=== PATIENT | female | born 1925 | race Caucasian/White ===

== ENCOUNTER 2016-10-05 18:18 | Observation (INO) | payer OTHER, MEDICAID ==
[~2016-10-05] VITALS: Ht 157.5 cm; Wt 51.9 kg
[2016-10-05 19:41] LABS: PLATELET COUNT 325 x10^3mcL (130-400)
[2016-10-05 19:45] LABS: CALCIUM 8.4 mg/dL (8.5-10.1); CARBON DIOXIDE 29.5 mmol/L (21-32); CHLORIDE SERUM 104 mmol/L (98-107); CREATININE SERUM 1.6 mg/dL (0.6-1.0); GLUCOSE SERUM 120 mg/dL (74-106); POTASSIUM SERUM 5.1 mmol/L (3.5-5.1); SODIUM SERUM 139 mmol/L (136-145)
[2016-10-05 19:50] LABS: ALKALINE PHOSPHATASE 97 U/L (46-116); ALT/SGPT 15 U/L (14-59); AST/SGOT 18 U/L (15-37); BILIRUBIN TOTAL 0.29 mg/dL (0.20-1.00); TOTAL PROTEIN, SERUM 6.6 g/dL (6.4-8.2)
[2016-10-05 19:51] LABS: ALBUMIN 2.8 g/dL (3.4-5.0)
[2016-10-05 19:53] LABS: RED CELL DISTRIBUTION WIDTH 22.4 % (11.5-14.5)
[2016-10-05 20:03] LABS: MONOCYTE 19 % (0-7); SEGMENTED NEUTROPHILS 57 % (37-75)
[2016-10-05 20:06] LABS: BAND NEUTROPHIL 0 % (0-10); BASOPHIL 0 % (0-2); rbc morphology (normal/abnorm) ABNORMAL (NORMAL)
[2016-10-05 20:07] LABS: PLATELET MORPHOLOGY PLATELETS NORMAL; ovalocyte/elliptocyte 1+
[2016-10-05 21:28] LABS: PHOSPHOROUS 3.3 mg/dL (2.5-4.9); RED BLOOD CELLS 2.49 M/mm3 (4.10-5.10)
[2016-10-05 21:30] LABS: T3 TOTAL 0.92 ng/mL
[2016-10-05 21:31] LABS: FREE T4 1.03 ng/dL (0.76-1.46)
[2016-10-05 21:33] LABS: IRON 35 ug/dL (50-170)
[2016-10-05 21:34] LABS: TOTAL IRON BINDING CAPACITY 212 ug/dL (250-450)
[2016-10-05 21:56] LABS: FREE THYROXINE INDEX 2.3 ug/dL (1.4-4.5); T4(THYROXINE) 7.3 ug/dL (4.7-13.3)
[2016-10-05 21:58] LABS: CHOLESTEROL/HDL RATIO 2.5; MAGNESIUM 1.4 mg/dL (1.8-2.4)
[2016-10-05 22:17] VITALS: BP 163/57
[2016-10-05 23:35] LABS: UA SPECIFIC GRAVITY 1.015 (1.005-1.035); microscopic required? YES; urine erythrocyte NEGATIVE (NEGATIVE)
[2016-10-05 23:46] LABS: AMPHETAMINE QUAL UR NONE DETECTED (NEG <=1000)
[2016-10-06 06:30] VITALS: BP 145/60
[2016-10-06 07:20] VITALS: BP 146/65
[2016-10-06 09:04] VITALS: BP 140/62
[2016-10-06 12:12] LABS: PLATELET COUNT 264 x10^3mcL (130-400)
[2016-10-06 12:13] LABS: RED CELL DISTRIBUTION WIDTH 19.3 % (11.5-14.5)
[2016-10-06 12:48] LABS: SEGMENTED NEUTROPHILS 64 % (37-75)
[2016-10-06 12:49] LABS: ATYPICAL LYMPH 2 %; BAND NEUTROPHIL 0 % (0-10); BASOPHIL 0 % (0-2); MONOCYTE 10 % (0-7); PLATELET MORPHOLOGY N; rbc morphology (normal/abnorm) ABNORMAL (NORMAL)
[2016-10-06 13:26] VITALS: BP 149/59
[2016-10-06 16:17] VITALS: BP 149/59
== END 2016-10-06 17:30 | disposition home or self-care (01) | DRG 811 ==
LOC: ED 18:18 → DU 20:30
PROVIDERS: Emergency Medicine; ADMIT Family Medicine
PROC: 30233N1 Transfusion of Nonautologous Red Blood Cells into Peripheral Vein, Percutaneous Approach (ICD-10-PCS; principal; 2016-10-05)
DX: D64.81 Anemia due to antineoplastic chemotherapy (principal); E43 Unspecified severe protein-calorie malnutrition; I50.43 Acute on chronic combined systolic (congestive) and diastolic (congestive) heart failure; N17.0 Acute kidney failure with tubular necrosis; N39.0 Urinary tract infection, site not specified; C53.9 Malignant neoplasm of cervix uteri, unspecified; T45.1X5A Adverse effect of antineoplastic and immunosuppressive drugs, initial encounter; E83.42 Hypomagnesemia; Z68.20 Body mass index [BMI] 20.0-20.9, adult; Z92.3 Personal history of irradiation; Y92.009 Unspecified place in unspecified non-institutional (private) residence as the place of occurrence of the external cause
CPT/HCPCS: 80307; 83880; 84439; G0378; J0696; J1940; J3475; J7030; J7050; P9016; Q0092

== ENCOUNTER 2016-10-19 13:17 | Inpatient (IN) | payer OTHER, MEDICAID ==
[~2016-10-19] VITALS: Ht 157.5 cm; Wt 56.4 kg
--- NOTE | 2016-10-19 13:41 | NUR ---
CODE BRAIN CALLED.
--- NOTE | 2016-10-19 13:43 | NUR ---
TO CT VIA W/C.
--- NOTE | 2016-10-19 13:46 | NUR ---
RECEVED AWAKE ALERT ORIENTED, ANSWERS QUESTIONS PROPERLY, PER DAUGHTER, HAD HEADACHE YESTERDAY, TODAY AT 1145 DAUGHTER NOTICED THAT HER MOTHER BECAME ALTERED AND HAVING SLURRED SPEECH,AND WAS C/O RT HAND NUMBNESS, NOW IMPROVED,SEEN BY DR DE LEON
--- NOTE | 2016-10-19 14:16 | NUR ---
IV ESTABLISHED, BLOOD DRAWN,BLOOD CULTURE DONE, COMPRESSOR STATION ENGINEER CHIEF IN SR WITH OCCASIONAL PACS
[2016-10-19 14:28] LABS: BASOPHIL % 0.5 % (0-2); PLATELET COUNT 324 x10^3mcL (130-400)
[2016-10-19 14:59] LABS: ALBUMIN 3.1 g/dL (3.4-5.0); ALKALINE PHOSPHATASE 106 U/L (46-116); ALT/SGPT 17 U/L (14-59); AST/SGOT 20 U/L (15-37); BILIRUBIN TOTAL 0.33 mg/dL (0.20-1.00); CALCIUM 8.8 mg/dL (8.5-10.1); CARBON DIOXIDE 26.9 mmol/L (21-32); CHLORIDE SERUM 104 mmol/L (98-107); CHOLESTEROL 183 mg/dL (<200); CREATININE SERUM 1.5 mg/dL (0.6-1.0); GLUCOSE SERUM 120 mg/dL (74-106); HDL CHOLESTEROL 61 mg/dL (40-60); POTASSIUM SERUM 4.4 mmol/L (3.5-5.1); SODIUM SERUM 140 mmol/L (136-145); TOTAL PROTEIN, SERUM 6.9 g/dL (6.4-8.2)
[2016-10-19 16:20] VITALS: BP 171/71
--- NOTE | 2016-10-19 16:24 | NUR ---
RECEIVED PT FROM ED VIA GUZMAN. ORIENTED PT TO ROOM AND SURROUNDINGS. IV NOTED TO RFA PATENT AND INTACT. TELE 3 PLACED ON PT READING SR WITH PACS. INSTRUCTED PT ON THE USE OF CALL LIGHT FOR ASSISTANCE. ENDORSED PT TO PRIMARY NURSE OLIVIA
[2016-10-19 17:33] VITALS: BP 164/62
[2016-10-19 17:40] LABS: PHOSPHOROUS 3.6 mg/dL (2.5-4.9)
[2016-10-19 17:48] LABS: FREE T4 1.06 ng/dL (0.76-1.46); FREE THYROXINE INDEX 2.5 ug/dL (1.4-4.5); T3 TOTAL 1.02 ng/mL; T4(THYROXINE) 8.3 ug/dL (4.7-13.3)
[2016-10-19 18:13] LABS: CHOLESTEROL/HDL RATIO 3.1; MAGNESIUM 1.3 mg/dL (1.8-2.4)
[2016-10-19 18:30] VITALS: BP 161/65
--- NOTE | 2016-10-19 19:10 | NUR ---
PATIENT RECEIVED AWAKE, ALERT, AND ORIENTED X 4. DAUGHTER AT BEDSIDE. NO DISTRESS NOTED. PATIENT DENIES PAIN/DISCOMFORT. PATIENT DENIES TINGLING/NUMBNESS TO ARMS. IV SITE TO RIGHT FOREARM, PATENT AND INTACT. IV FLUID INFUSING PER DOCTOR'S ORDER. BED IN LOWEST POSITION. CALL LIGHT WITHIN REACH. WILL CONTINUE TO MONITOR.
[2016-10-19 20:35] LABS: UA SPECIFIC GRAVITY 1.015 (1.005-1.035); microscopic required? YES; urine erythrocyte NEGATIVE (NEGATIVE)
[2016-10-19 20:42] LABS: AMPHETAMINE QUAL UR NONE DETECTED (NEG <=1000)
--- NOTE | 2016-10-19 20:50 | NUR ---
HEPARIN DRIP INITIATED. HEPARIN LOADING DOSE OF 3400 UNITS GIVEN. HEPARIN DRIP STARTED AT 700 UNITS/HR, VERIFIED W/ PRIMARY NURSE JOSIE. PTT ORDERED AT 0250H.
[2016-10-19 21:28] VITALS: BP 126/58
[2016-10-20 03:09] LABS: BASOPHIL % 0.6 % (0-2); PLATELET COUNT 250 x10^3mcL (130-400)
[2016-10-20 03:10] LABS: RED CELL DISTRIBUTION WIDTH 17.9 % (11.5-14.5)
[2016-10-20 03:27] LABS: CALCIUM 8.4 mg/dL (8.5-10.1); CARBON DIOXIDE 26.9 mmol/L (21-32); CHLORIDE SERUM 106 mmol/L (98-107); CREATININE SERUM 1.3 mg/dL (0.6-1.0); GLUCOSE SERUM 100 mg/dL (74-106); MAGNESIUM 2.8 mg/dL (1.8-2.4); POTASSIUM SERUM 4.2 mmol/L (3.5-5.1); SODIUM SERUM 139 mmol/L (136-145)
--- NOTE | 2016-10-20 03:51 | NUR ---
PTT=61.9. FIRST THERAPEUTIC. PTT REORDERED FOR 0700.
--- NOTE | 2016-10-20 05:09 | NUR ---
PATIENT RESTED THROUGHOUT THE NIGHT. NO DISTRESS NOTED. NO C/O PAIN/DISCOMFORT. SAFETY AND COMFORT MEASURES MAINTAINED. BED IN LOWEST POSITION. CALL LIGHT WITHIN REACH. WILL CONTINUE TO MONITOR AND GIVE REPORT TO THE NEXT SHIFT NURSE.
[2016-10-20 06:00] VITALS: BP 126/53
--- NOTE | 2016-10-20 07:56 | NUR ---
A/O X4. CLEAR SPEECH. FOLLOW COMMANDS. ON TEL 3 SR WITH PAC'S HR 74. RADIAL AND PEDAL PULSES PALPABLE. NO EDEMA OR SWELLING NOTED. <3 SECS CAP REFILL. SCDS IN PLACED. ON RA SAT 96%. BREATHING EVEN AND UNLABORED. CLEAR LUNG SOUNDS. VOIDING ADEQUATELY. HAS MILD GENERALIZED WEAKNESS. NEEDS ASSIST WITH ADLS. NO SKIN TEAR OR OPEN WOUNDS. NO BRUISES NOTED. DENIES PAIN. IV SITE INTACT ON RFA. NS INFUSING WELL AT 100 ML/HR. HEP DRIP INFUSING AT 700 UNITS/HR. CALL LIGHT WITHIN REACH. WILL CONTINUE TO MONITOR.
--- NOTE | 2016-10-20 08:25 | NUR ---
TOOK MEDS WITHOUT DIFFICULTY.
--- NOTE | 2016-10-20 09:02 | NUR ---
SPOKE TO DR BARROS REGARDING BLOOD CX RESULT OF GRAM POSITIVE AND COCCI AND CLUSTERS.
--- NOTE | 2016-10-20 09:23 | NUR ---
PTT STILL PENDING AT THIS TIME.
--- NOTE | 2016-10-20 09:25 | NUR ---
WATCHING TV AT THIS TIME. NO DISTRESS NOTED. WILL CONTINUE TO MONITOR.
--- NOTE | 2016-10-20 09:50 | NUR ---
PTT IS AT 52.8. ACCORDING TO HEPARIN ORDER SHEET IT IS WITHIN THERAPEUTIC RANGE AND NO CHANGE.
[2016-10-20 09:58] VITALS: BP 130/57
--- NOTE | 2016-10-20 10:05 | NUR ---
SITTING AT THE SIDE OF BED. NO DISTRESS NOTED.
--- NOTE | 2016-10-20 11:42 | NUR ---
PHYSICAL THERAPIST AT BEDSIDE.
--- NOTE | 2016-10-20 12:17 | NUR ---
WATCHING TV. NO DISTRESS NOTED.
--- NOTE | 2016-10-20 13:15 | NUR ---
RESTING COMFORTABLY. WILL CONTINUE TO MONITOR.
--- NOTE | 2016-10-20 13:49 | NUR ---
MEDICAL STUDENT AT BEDSIDE.
[2016-10-20 14:14] VITALS: BP 128/52
--- NOTE | 2016-10-20 14:31 | NUR ---
REINFORCE IV DRESSING WITH TAPE.
--- NOTE | 2016-10-20 15:44 | NUR ---
P.T. NOTES Pt CLEARED PER RN FOR PT EVAL. PATIENT LIVES AT HOME W/FAMILY WHO ASSIST HER WITH ADLs NEEDED. SHE AMBU W/FWW PRN AT HOME BUT ADMITS TO INCONSISTENT USE OF ASSISTIVE DEVICE AND INCREASED DIFFICULTY WITH WALKING AND BALANCE. Pt WAS ADMITTED TO HOSPITAL S/P TIA AND PAROXYSMAL A-FIB. IMAGING:SMALL LACUNAR INFARCT OF L THALAMUS. S: Pt PRESENTS AWAKE, ALERT AND AGREEABLE FOR PT EVAL. DENIES PAIN AT THIS TIME, BUT C/O SOME INTERMITTENT DIZZINESS AT TIMES. Pt IS PLEASANT AND TALKATIVE. ORIENTED X4. O: PLEASE SEE EVAL FOR DETAILS. VS ASSESSMENT: SP02 98% ON RA, HR 82BPM, BP 138/54. Pt MOSTLY REQUIRES MIN A FOR BED MOB, TRANSFERS AND GT WITH FWW FOR 2 X 12 FT. Pt EDU ON SAFETY, FWW USE, FALL PREVENTION INCLUDING HOME SAFETY. Pt SAFELY ASSISTED BTB POST PT EVAL WITH ALL LINES INTACT, CALL LIGHT AND TRAY IN REACH, HOB ELEVATED. COOPERATIVE AND APPRECIATIVE OF CARE. A: PT TOLERATED PT WELL. FALL RISK D/T DECLINE IN FUNCTION, MILD UNSTEADY GAIT WITH FWW, DECREASED SAFETY AWARENESS. MILD IMPULSIVE AT TIMES. FRAGILE ELDERLY. DEMO'S DECREASED GABRIEL, ANTERIOR FLEXED POSTURE, FLAT FOOT CONTACT, DECREASED FOOT CLEARANCE. WILL BENEFIT FROM PT SERVICES DURING ACUTE STAY AND POST ACUTE STAY FOR BALANCE TRAINING/FALL PREVENTION. P: POC REVIEWED W/PROFESSOR OF APOLOGETICS. PLEASE SEE PATIENT ONCE DAILY, 6X/WK,1 WEEK. EVAL 38' [id number]; [id number] TUG 13 SEC Pt INSTRUCTED ON SUP<>SIT VIA LOG ROLL WELL PROPER SIT<>STAND W/USE OF FWW. ASSISTED W/USE OF COMMODE W/MIN A AND INSTRUCTED W/SAFE TRANSFER W/USE OF GRAB BAR. DEMO GOOD LEARNING. 1 TA 10' [phone]
--- NOTE | 2016-10-20 16:56 | NUR ---
COMPLAINS OF ACHING LEFT BACK LEG 6/10. NORCO GIVEN. WILL CONTINUE TO MONITOR.
[2016-10-20 17:04] VITALS: BP 133/63
--- NOTE | 2016-10-20 19:10 | NUR ---
RECEIVED PATIENT RESTING IN BED. PATIENT IS ALERT, AWAKE, AND ORIENTED X4. TELE #3 SINUS RHYTHM. LUNG SOUNDS CLEAR. NO SHORTNESS OF BREATH NOTED. BOWEL SOUNDS ACTIVE. GENERALIZED WEAKNESS NOTED. AMBULATES WITH ASSIST. BRUSING NOTED UNDER LEFT EYE. IV FLUID INFUSING AT 100 ML/HR TO RIGHT FOREARM. HEPARIN CONTINUES TO INFUSE AT 700 UNITS/HR. INTACT AND PATENT. SAFETY AND COMFORT MEAUSURES IN PLACE. BED IN LOWEST POSITION. CALL LIGHT WITHIN REACH. WILL CONTINUE TO MONITOR.
[2016-10-20 22:15] VITALS: BP 132/36
[2016-10-21 01:01] VITALS: BP 118/66
--- NOTE | 2016-10-21 05:07 | NUR ---
PATIENT RESTING IN BED. NO SIGNIFICANT CHANGES DURING SHIFT. NO DISTRESS NOTED. HEPARIN CONTINUES TO INFUSE AT 700 UNITS/HR. CALL LIGHT WITHIN REACH. WILL CONTINUE TO MONITOR.
[2016-10-21 05:55] VITALS: BP 124/49
[2016-10-21 06:54] LABS: CARBON DIOXIDE 23.3 mmol/L (21-32); CHLORIDE SERUM 109 mmol/L (98-107); CREATININE SERUM 1.4 mg/dL (0.6-1.0); GLUCOSE SERUM 90 mg/dL (74-106); POTASSIUM SERUM 4.5 mmol/L (3.5-5.1); SODIUM SERUM 140 mmol/L (136-145)
[2016-10-21 07:05] LABS: BASOPHIL % 0.7 % (0-2); PLATELET COUNT 225 x10^3mcL (130-400)
--- NOTE | 2016-10-21 07:10 | NUR ---
PT SEEN AWAKE, ALERT/ ORIENTED X3. PT COMPLAIN OF MODERATE PAIN ON L FOOT AND KNEE PAIN 2/2 THIS FALL. WILL PROVIDE PAIN MANAGEMENT PER ORDER. PT'S R GAMBELL. PT BREATHING ON RA EVEN, UNLABORED. PT ON HEPARIN DRIP, INFUSING AT 700 UNITS/HR AT THIS TIME. WAITING FOR THIS MORNING PTT RESULT. NEED TO ASSIST TO WALK TO BATHROOM.
[2016-10-21 07:23] LABS: RED CELL DISTRIBUTION WIDTH 19.5 % (11.5-14.5)
[2016-10-21 07:45] VITALS: BP 125/61
--- NOTE | 2016-10-21 08:20 | NUR ---
GOT LAB CALL PT'S PTT 52.4, WITHIN THERAPEUTIC, HEPARIN DRIP REMAINING 700 UNITS/ HR. WILL CONTINUE TO MONITOR.
[2016-10-21 13:35] VITALS: BP 106/50
[2016-10-21 14:00] VITALS: BP 121/49
--- NOTE | 2016-10-21 14:04 | NUR ---
PT IS GETTING READY FOR CT ABD+PELVIS WITH ORAL CONTRAST.
--- NOTE | 2016-10-21 15:44 | NUR ---
PT NOTES TIME [id number] S: CLEARED BY RN FOR P.T. TX. PATIENT IS AWAKE & ALERT IN A SEMI GARCIA POSITION IN BED. AGREEABLE TO P.T. TX. C/O PAIN ON L BALL OF FOOT 7/10 W/ MOVEMENT & DIZZINESS. DR. BARROS AWARE OF PATIENT'S C/O PAIN ON L FOOT. O: VITALS AT REST BP 116/50, HR 89 BPM, SPO2 ON RA 96%. BED MOBILITY: SUPINE>SIT CGA. TRANSFER: SIT<>STAND W/ FWW MIN/CGA. STAND PIVOT TRANSFER W/ MIN/CGA. VC GIVEN W/ PROPER HAND/FEET PLACEMENT FOR SIT<>STAND TRANSFERS & STAND PIVOT TRANSFERS. GAIT: 10FT W/ FWW MIN ASSIST. PATIENT DEMO'S ANTALGIC GAIT ON L LE. PATIENT UNABLE TO ASSUME L FOOT FLAT CONTACT DURING GAIT & TENDS TO ONLY HAVE L HEEL CONTACT. PATIENT PROTECTIVE OF L FOOT. GAIT DISTANCE LIMITED D/T DIZZINESS. VITALS IN SITTING BP 145/50. VC GIVEN W/ PROPER GAIT SEQUENCE. SHORTENED STEP/STRIDE LENGTH. DECREASE GAIT VELOCITY. EDUCATED ON SAFETY FOR FALL PREVENTION W/ GOOD UNDERSTANDING. COOPERATIVE & APPRECIATIVE OF CARE. INSTRUCTED IN THER EX FOR BILAT LE. PATIENT IS SAFELY & COMFORTABLY SITTING UP AT EOB W/ CALL BUTTON & TABLE IN REACH. RN NOTIFIED. P: DISCUSSED W/ PRIMARY PHYSICAL THERAPIST [id number]',[id number]'
--- NOTE | 2016-10-21 19:00 | NUR ---
PT'S DAUGHTER AT BED SIDE. PT HAD BM, STOOL SPECIMEN SENT PER ORDER. PT BREATHING ON RA, EVEN, UNLABORED, IV SITE PATENT, INTACT. HEPARINE DRIP INFUSING AT 700 UNITS/ HR. PT NEED NPO AFTER MID NIGHT FOR TOMORROW EGD.
--- NOTE | 2016-10-21 19:01 | NUR ---
RECEIVED PATIENT RESTING IN BED WITH FAMILY AT BEDSIDE. PATIENT IS ALERT, AWAKE, AND ORIENTED X4. TELE #3 SINUS RHYTHM. PATIENT DENIES PAIN OR DISCOMFORT AT THIS TIME. LUNG SOUNDS CLEAR. NO SHORTNESS OF BREATH NOTED. TRACE EDEMA NOTED TO BLE. MILD SWELLING NOTED TO LEFT FOOT AND KNEE. PATIENT COMPLAINS OF PAIN WHEN PUTTING WEIGHT ON LLE. BRUISING NOTED TO LEFT SIDE OF FACE. IV FLUID INFUSING TO RIGHT FOREARM AT 60 ML/HR. HEPARIN DRIP INFUSING AT 700 UNITS/HR. INTACT AND PATENT. SAFETY AND COMFORT MEASURES IN PLACE. BED IN LOWEST POSITION. CALL LIGHT WITHIN REACH. WILL CONTINUE TO MONITOR.
--- NOTE | 2016-10-21 20:00 | NUR ---
HEPARIN DRIP DC'D ORDERED.
[2016-10-21 21:19] VITALS: BP 140/54
--- NOTE | 2016-10-22 05:04 | NUR ---
PATIENT SLEPT WELL DURING THE NIGHT. NO DISTRESS NOTED. IV FLUID INFUSING WELL. CALL LIGHT WITHIN REACH. WILL CONTINUE TO MONITOR.
[2016-10-22 05:19] VITALS: BP 144/54
[2016-10-22 06:10] LABS: BASOPHIL % 0.4 % (0-2); PLATELET COUNT 215 x10^3mcL (130-400)
[2016-10-22 06:25] LABS: CALCIUM 8.3 mg/dL (8.5-10.1); CARBON DIOXIDE 22.8 mmol/L (21-32); CHLORIDE SERUM 107 mmol/L (98-107); CREATININE SERUM 1.3 mg/dL (0.6-1.0); GLUCOSE SERUM 81 mg/dL (74-106); POTASSIUM SERUM 4.7 mmol/L (3.5-5.1); SODIUM SERUM 137 mmol/L (136-145)
[2016-10-22 06:56] LABS: RED CELL DISTRIBUTION WIDTH 19.4 % (11.5-14.5)
--- NOTE | 2016-10-22 07:02 | NUR ---
RECEIVED REPORT FROM NOC SARITHA BOWDEN AT THIS TIME. PATIENT RESTING IN BED AWAKE, ALERT AND O X4. TELE # [address] ON ROOM AIR, NO DISTRESS NOTED. ECCHYMOSIS NOTED UNDER LEFT EYE AND CHEEK. IV TO RFA IN PLACE INFUSING NS AT 50ML/HR. INSTRUCTED ON USE OF CALL LIGHT. WILL CONTINUE TO MONITOR.
--- NOTE | 2016-10-22 08:53 | NUR ---
ROUNDS MADE AT THIS TIME. DR. RAHMAN, RESIDENT TEAM, CLINICAL SAFETY MANAGER AND PRIMARY RN AT THE BEDSIDE. PLAN OF CARE IS DISCUSSED. QUESTIONS AND CONCERNS ADDRESSED. WILL CONTINUE TO MONITOR.
[2016-10-22 09:20] VITALS: BP 142/54
--- NOTE | 2016-10-22 10:06 | NUR ---
PATIENT STEPHANIA KISER FOR EGD AT THIS TIME
--- NOTE | 2016-10-22 11:38 | NUR ---
RETURNED TO FLOOR FROM EGD AT THIS TIME. VS: 98.6 ORAL, 135/54, MAP 81, HR 85, 96% ON ROOM AIR. NO DISTRESS NOTED WILL CONTINUE TO MONITOR.
[2016-10-22 14:00] VITALS: BP 139/58
--- NOTE | 2016-10-22 14:24 | NUR ---
SWELLING NOTED TO LEFT LEG. WILL NOTIFY
--- NOTE | 2016-10-22 14:26 | NUR ---
NOTIFED DR. GAITAN SWELLING NOTED TO LLE AT THIS TIME
--- NOTE | 2016-10-22 15:10 | NUR ---
IN TO SEE PATIENT AT THIS TIME. PATIENT IS RESTING IN BED. NO DISTRESS NOTED. IV TO RFA INTACT AND PATENT. DENIES PAIN. INSTRUCTED ON USE OF CALL LIGHT AND SAFTEY. WILL CONTINUE TO MONITOR.
--- NOTE | 2016-10-22 15:14 | NUR ---
PT NOTES TIME [phone] S: CLEARED BY RN FOR P.T. TX. PATIENT IS AWAKE & ALERT IN A SEMI GARCIA POSITION IN BED. AGREEABLE TO P.T. TX. C/O PAIN ON PLANTAR SURFACE OF L FOOT 11/25. EDEMA OBSERVED ON L FOOT. O: VITALS AT REST BP 139/58, HR 89 BPM, SPO2 ON RA 97% BED MOBILITY: SUPINE<>SIT SBA. TRANSFER: SIT<>STAND W/ FWW CGA. GAIT: 40FT W/ FWW MIN/CGA. PATIENT STILL DEMO'S A DECREASE GAIT VELOCITY. ANTALGIC GAIT W/ DECREASE STANCE PHASE ON L LE. DURING GAIT TRAINING PATIENT DOES NOT ASSUME FOOT FLAT CONTACT DUE TO PAIN ON L FOOT. TENDS TO PREFER GAIT TRAINING ON L HEEL. C/O MINIMAL DIZZINESS DURING GAIT. PATIENT GAIT DISTANCE LIMITED DUE TO DECREASE ENDURANCE, WEAKNESS, & PAIN. PATIENT IS PROGRESSING WELL & HAS INCREASED GAIT DISTANCE. VC GIVEN W/ PROPER MANUEVERING OF FWW & SEQUENCING. ADDITIONAL VC GIVEN TO SCAN AREA IN ORDER TO MANUEVER SAFELY AROUND OBSTACLES. EDUCATED PATIENT ON SAFETY FOR FALL PREVENTION & USE OF CALL BUTTON W/ G UNDERSTANDING. COOPERATIVE & APPRECIATIVE OF CARE. PATIENT IS SAFELY & COMFORTABLY IN A SEMI GARCIA POSITION IN BED W/ CALL BUTTON & TABLE IN REACH. LEFT IN CARE OF DAUGHTER. RN NOTIFIED. P: DISCUSSED W/ PRIMARY PHYSICAL THERAPIST [id number]',[id number]'
--- NOTE | 2016-10-22 17:00 | NUR ---
PATIENT RESTING IN BED, AWAKE ALERT AND O X4 DOING A WORD SEARCH. NO DISTRESS NOTED. DENIES PAIN. INSTRUCTED TO USE CALL LIGHT. WILL CONTINUE TO MONITOR.
[2016-10-22 17:12] VITALS: BP 158/57
--- NOTE | 2016-10-22 19:30 | NUR ---
RECEIVED REPORT FROM SARITHA DAY. PT RESTING COMFORTABLY IN BED, IN NO ACUTE DISTRESS OR DISCOMFORT. AAOX4. DENIES OF WARE/DIZZINESS AT THIS TIME. PT STATES SHE GETS EPISODES OF DIZZINESS IN AMBULATION. ON TELE MON 3 SR. DENIES OF ANY CHEST DISCOMFORT. PER PULSES STRONG. +3 PITTING EDEMA ON L FOOT. IN RA WITH SAT 97%. BREATHING EVENLY AND UNLABORED. NO SOB NOTED. LUNGS CTA. BS HYPERACTIVE. ABD SOFT AND NON DISTENDED. PT HAS SCHEDULED COLONOSCOPY TOMORROW MORNING. WILL PREPARE PT FOR PROCEDURE. VOIDS FREELY WITHOUT ANY PAIN. AMB ASSIST. PT SP FALL AND ACQUIRED AN ECCHYMOSIS ON L SIDE OF THE FACE. SKIN INTACT AND NO DRAINAGE NOTED. DENIES OF ANY PAIN. IV ON RFA PATENT. SAFETY MEASURES ENSURED. INSTRUCTED PT TO ALWAYS CALL FOR ASSISTANCE IN AMBULATION. PT VERBALIZED AGREEMENT. CALL LIGHT WITHIN REACH. WILL CONT TO MONITOR PT.
[2016-10-22 21:52] VITALS: BP 158/66
--- NOTE | 2016-10-23 05:00 | NUR ---
PT WAS IN NO ACUTE DISTRESS. LATEST BM YELLOW WATERY STOOL. HELD PT NPO PAST MIDNIGHT. SAFETY MEASURES ENSURED. CALL LIGHT WITHIN REACH. PT AWARE PROCEDURE WILL BE AT 1230 TODAY. VERBALIZED UNDERSTANDING. SAFETY MEASURES ENSURED. CALL LIGHT WITHIN REACH.
[2016-10-23 06:32] LABS: BASOPHIL % 0.3 % (0-2); PLATELET COUNT 205 x10^3mcL (130-400)
[2016-10-23 06:41] LABS: CALCIUM 8.4 mg/dL (8.5-10.1); CARBON DIOXIDE 23.2 mmol/L (21-32); CHLORIDE SERUM 110 mmol/L (98-107); CREATININE SERUM 1.3 mg/dL (0.6-1.0); GLUCOSE SERUM 86 mg/dL (74-106); POTASSIUM SERUM 4.3 mmol/L (3.5-5.1); SODIUM SERUM 140 mmol/L (136-145)
[2016-10-23 06:42] VITALS: BP 134/54
[2016-10-23 06:49] LABS: RED CELL DISTRIBUTION WIDTH 19.6 % (11.5-14.5)
--- NOTE | 2016-10-23 07:50 | NUR ---
RECEIVED PATIENT AAOX4, ABLE TO COMMUNICATE AND FOLLOW COMMANDS, NO DISTRESS NOTED, TELE#[address] AND DENIES CHEST PAIN. PALPABLE PULSES TO BUE/BLE. ON ROOM AIR, DENIES SOB, AND RESPRIATIONS EVEN AND UNLABORED. DENIES N/V. VOIDS FREELY USING WALKER TO ABULATE TO RESTROOM WITH ASSIT AND WILL ASSIST NEEDED. DENIES PAIN. SALINE LOCK TO RFA CDI AND FLUSHES WELL. BED TO LOWEST POSITION, SIDE RAILS UPX2, FALL PRECAUTIONS IN PLACE, CALL LIGHT AND BELONGINGS WITHIN REACH, AND WILL CONTINUE TO MONITOR.
--- NOTE | 2016-10-23 08:30 | NUR ---
ROUNDS MADE BY , RESIDENTS, AND MEDICAL STAFF AT BEDSIDE, PATIENT WILL BE ABLE TO BE DISCHARGED TODAY IN THE AFTERNOON, ALL QUESTIONS AND CONCERNS ADDRESSED, CALL LIGHT AND BELONGINGS WITHIN REACH, AND WILL CONTINUE TO MONITOR.
--- NOTE | 2016-10-23 09:20 | NUR ---
MADE AWARE OF HGB/HCT 7.08/08, NO NEW ORDERS AND WILL CONTINUE TO MONITOR.
[2016-10-23 11:07] VITALS: BP 156/59
--- NOTE | 2016-10-23 11:55 | NUR ---
PATIENT LEFT TO COLONOSCOPY AAOX4, NO DISTRESS NOTED, RESPIRATIONS EVEN AND UNLABORED, AND WILL MONITOR WHEN PATIENT RETURNS
--- NOTE | 2016-10-23 12:37 | NUR ---
PT NOTES TIME [id number] S: CLEARED BY RN FOR P.T. TX. PATIENT IS AWAKE & ALERT IN A SEMI GARCIA POSITION IN BED. AGREEABLE TO P.T. TX. C/O L FOOT PAIN 09/25 & DIZZINESS. RN NOTIFIED. O: VITALS IN SUPINE BP 138/62, HR 83 BPM, SPO2 ON RA 96% BED MOBILITY: SUPINE<>SIT INDEPENDENT. VITALS IN SITTING BP 132/55, HR 87 BPM TRANSFER: SIT<>STAND W/ FWW CGA. TOILETING W/ CGA. VC GIVEN W/ PROPER SEQUENCE FOR SIT>STAND. PATIENT GIVEN VC TO PUSH FROM BED RATHER THAN PULL FROM FWW TO STAND. ADDITIONAL VC GIVEN TO USE RESTROOM GRAB BAR TO ASSIST W/ TOILETING. VITALS IN STANDING BP 132/54, HR 96 BPM GAIT: 70FT W/ FWW CGA. PATIENT STILL DEMO'S A DECREASE GAIT VELOCITY. STEP TO GAIT PATTERN W/ DECREASE STEP LENGTH. GAIT DISTANCE LIMITED DUE TO DIZZINESS, WEAKNESS, & DECREASE ENDURANCE. PATIENT NOW DEMO'S FOOT FLAT CONTACT ON L FOOT, BUT REQUIRES VC FOR HEEL-TOE GAIT PATTERN. ADDITIONAL VC GIVEN TO SCAN AREA FOR OBSTACLES IN PATHWAY IN ORDER TO SAFELY MANUEVER AROUND. PATIENT HAS INCREASED GAIT DISTANCE. EDUCATED ON SAFETY FOR FALL PREVENTION W/ GOOD UNDERSTANDING. COOPERATIVE & APPRECIATIVE OF CARE. PATIENT IS SAFELY & COMFORTABLY IN A SEMI GARCIA POSITION IN BED W/ CALL BUTTON & TABLE IN REACH. LEFT IN CARE OF RN. P: DISCUSSED W/ PRIMARY PHYSICAL THERAPIST [id number]',[id number]',PVE(MONITOR VITALS/SETUP)
--- NOTE | 2016-10-23 13:40 | NUR ---
PATIENT BACK FROM COLONOSCOPY AAOX4, NO DISTRESS NOTED, RESPIRATIONS EVEN AND UNLABORED, FALL PRECAUTIONS IN PLACE, CALL LIGHT AND BELONGINGS WITHIN REACH AND WILL CONTINUE TO MONITOR.
--- NOTE | 2016-10-23 14:04 | NUR ---
REPORT GIVEN TO FANNY ELZIABETH AT [facility] AT [phone], ALL QESTIONS AND CONCERNS ADDRESSED, WILL CONTINUE TO MONITOR.
[2016-10-23 14:37] VITALS: BP 121/50
[2016-10-23 16:15] VITALS: BP 121/50
[2016-10-23] MEDS ORDERED: ZES10 PO (16:44)
[2016-10-23] MEDS ORDERED: LIPI10 PO (16:44)
[2016-10-23] MEDS ORDERED: COUMADIN2.5 MG PO ×2 (16:49→17:04)
[2016-10-23] MEDS ORDERED: NATURAL IRON65 MG PO (17:04)
[2016-10-23] MEDS ORDERED: VITC100 PO (17:04)
--- NOTE | 2016-10-23 17:30 | NUR ---
AT BEDSIDE TALKING TO PATIENT ABOUT [facility], EXPLAINED PLACEMENT IS FOR CONTINUED REHAB, ALL QUESTIONS AND CONCERNS ADDRESSED, CALL LIGHT AND BELONGINGS WITHIN REACH, FALL PRECAUTIONS IN PLACE AND WILL CONTINUE TO MONITOR.
--- NOTE | 2016-10-23 17:45 | NUR ---
DISCHARGE INSTRUCTIONS GIVEN TO PATIENT AND PATIENT WILL BE TRANSFERED TO [place] AND PATIENT AWARE, ALL QUESTIONS AND CONCERNS ADDRESSED, FALL PRECAUTIONS IN PLACE, CALL LIGHT AND BELONGINGS WITHIN REACH, AND WILL CONTINUE TO MONITOR.
--- NOTE | 2016-10-23 18:15 | NUR ---
PATIENT LEFT TO [facility] VIA GURNEY BY AMBULANCE AAOX4, NO DISTRESS NOTED, RESPIRAIONS EVEN AND UNLABORED, DENIES PAIN, IV TO RFA D/C AND CANNULA INTACT, TELE REMOVED AND RETURNED TO TELE STATION. PATIENT TOOK ALL PERSONAL BELONGINGS, DAUGHTER MICHAEL AWARE OF PLACEMENT AND DISCHARGE.
== END 2016-10-23 18:15 | DRG 377 ==
LOC: ED 13:17 → DU 15:03
PROVIDERS: Emergency Medicine; Family Medicine; Internal Medicine Gastroenterology; ADMIT Family Medicine
PROC: 0DB68ZX Excision of Stomach, Via Natural or Artificial Opening Endoscopic, Diagnostic (ICD-10-PCS; principal; 2016-10-22 11:00)
PROC: 0D5H8ZZ Destruction of Cecum, Via Natural or Artificial Opening Endoscopic (ICD-10-PCS; 2016-10-23)
PROC: 0D5L8ZZ Destruction of Transverse Colon, Via Natural or Artificial Opening Endoscopic (ICD-10-PCS; 2016-10-23)
DX: K29.71 Gastritis, unspecified, with bleeding (principal); N17.0 Acute kidney failure with tubular necrosis; I50.43 Acute on chronic combined systolic (congestive) and diastolic (congestive) heart failure; E43 Unspecified severe protein-calorie malnutrition; G45.9 Transient cerebral ischemic attack, unspecified; R55 Syncope and collapse; S00.83XA Contusion of other part of head, initial encounter; T39.015A Adverse effect of aspirin, initial encounter; I11.0 Hypertensive heart disease with heart failure; I16.0 Hypertensive urgency; I48.0 Paroxysmal atrial fibrillation; K57.30 Diverticulosis of large intestine without perforation or abscess without bleeding; Q27.33 Arteriovenous malformation of digestive system vessel; D63.8 Anemia in other chronic diseases classified elsewhere; E83.42 Hypomagnesemia; E86.0 Dehydration; R80.8 Other proteinuria; H91.91 Unspecified hearing loss, right ear; Z68.22 Body mass index [BMI] 22.0-22.9, adult; Z85.41 Personal history of malignant neoplasm of cervix uteri; Z92.21 Personal history of antineoplastic chemotherapy; Z92.3 Personal history of irradiation; W18.39XA Other fall on same level, initial encounter; Y92.002 Bathroom of unspecified non-institutional (private) residence as the place of occurrence of the external cause
CPT/HCPCS: 43235; 45378; 80307; 83880; 84439; 97116-GP; 97530-GP; J1200; J1610; J1644; J2250; J2310; J2765; J3010; J3420; J3475; J3490; J7030; Q0092; Q9966; Q9967

== ENCOUNTER 2017-09-15 14:07 | Inpatient (IN) | payer OTHER ==
[~2017-09-15] VITALS: Ht 154.9 cm; Wt 53.1 kg
[~2017-09-15 14:07] MED LIST: COUMADIN2.5 MG PO; LIPI10 PO; NATURAL IRON65 MG PO; VITC100 PO; ZES10 PO
[2017-09-15 14:12] VITALS: Ht 154.9 cm; Wt 53.1 kg
[2017-09-15 15:10] LABS: BASOPHIL % 0.6 % (0-2); PLATELET COUNT 298 x10^3mcL (130-400); RED CELL DISTRIBUTION WIDTH 15.1 % (11.5-14.5)
[2017-09-15 15:38] LABS: CARBON DIOXIDE 27.5 mmol/L (21-32); CHLORIDE SERUM 96 mmol/L (98-107); CREATININE SERUM 1.5 mg/dL (0.6-1.0); GLUCOSE SERUM 127 mg/dL (74-106); POTASSIUM SERUM 4.5 mmol/L (3.5-5.1); SODIUM SERUM 133 mmol/L (136-145)
[2017-09-15 15:40] LABS: ALBUMIN 3.6 g/dL (3.4-5.0); ALKALINE PHOSPHATASE 97 U/L (46-116); ALT/SGPT 19 U/L (14-59); AST/SGOT 22 U/L (15-37); BILIRUBIN TOTAL 0.3 mg/dL (0.20-1.00); TOTAL PROTEIN, SERUM 7.7 g/dL (6.4-8.2)
[2017-09-15 16:18] VITALS: BP 148/64
[2017-09-15 16:41] LABS: T3 TOTAL 0.94 ng/mL
[2017-09-15 16:48] LABS: MAGNESIUM 1.4 mg/dL (1.8-2.4); PHOSPHOROUS 3.8 mg/dL (2.5-4.9)
[2017-09-15 16:50] LABS: CHOLESTEROL/HDL RATIO 2.1
[2017-09-15 16:52] LABS: FREE T4 0.9 ng/dL (0.76-1.46); FREE THYROXINE INDEX 2.1 ug/dL (1.4-4.5); T4(THYROXINE) 6.7 ug/dL (4.7-13.3)
[2017-09-15 17:17] VITALS: BP 148/64
[2017-09-15 21:58] LABS: RED BLOOD CELLS 3.11 M/mm3 (4.10-5.10)
[2017-09-15 22:29] VITALS: BP 132/62
[2017-09-16 02:32] LABS: UA SPECIFIC GRAVITY <=1.005 (1.005-1.035); microscopic required? YES; urine erythrocyte NEGATIVE (NEGATIVE)
[2017-09-16 06:15] VITALS: BP 143/69
[2017-09-16 06:29] LABS: BASOPHIL % 0.1 % (0-2); PLATELET COUNT 245 x10^3mcL (130-400); RED CELL DISTRIBUTION WIDTH 14.4 % (11.5-14.5)
[2017-09-16 07:54] LABS: IRON 47 ug/dL (50-170)
[2017-09-16 08:04] LABS: TOTAL IRON BINDING CAPACITY 234 ug/dL (250-450)
[2017-09-16 08:40] LABS: CALCIUM 8.7 mg/dL (8.5-10.1); CARBON DIOXIDE 24.1 mmol/L (21-32); CHLORIDE SERUM 102 mmol/L (98-107); CREATININE SERUM 1.4 mg/dL (0.6-1.0); GLUCOSE SERUM 100 mg/dL (74-106); PHOSPHOROUS 3.7 mg/dL (2.5-4.9); POTASSIUM SERUM 4.9 mmol/L (3.5-5.1); SODIUM SERUM 137 mmol/L (136-145)
[2017-09-16 21:34] VITALS: BP 122/58
[2017-09-17 06:06] VITALS: BP 117/49
[2017-09-17 06:09] LABS: BASOPHIL % 0.5 % (0-2); PLATELET COUNT 221 x10^3mcL (130-400)
[2017-09-17 06:20] LABS: CALCIUM 8.5 mg/dL (8.5-10.1); CARBON DIOXIDE 23.1 mmol/L (21-32); CHLORIDE SERUM 99 mmol/L (98-107); CREATININE SERUM 1.5 mg/dL (0.6-1.0); GLUCOSE SERUM 93 mg/dL (74-106); MAGNESIUM 1.5 mg/dL (1.8-2.4); PHOSPHOROUS 3.3 mg/dL (2.5-4.9); SODIUM SERUM 131 mmol/L (136-145)
[2017-09-17 06:45] LABS: RED CELL DISTRIBUTION WIDTH 15.2 % (11.5-14.5)
[2017-09-17 09:49] VITALS: BP 136/61
[2017-09-17] MEDS ORDERED: XARELTO15 M1 PO (13:07)
[2017-09-17 13:21] VITALS: BP 136/61
[2017-09-17 13:46] VITALS: BP 107/62
== END 2017-09-17 14:41 | disposition home health service (06) | DRG 73 ==
LOC: ED 14:07 → DU 15:16
PROVIDERS: Emergency Medicine; Family Medicine
DX: G90.8 Other disorders of autonomic nervous system (principal); K85.90 Acute pancreatitis without necrosis or infection, unspecified; N17.0 Acute kidney failure with tubular necrosis; I50.43 Acute on chronic combined systolic (congestive) and diastolic (congestive) heart failure; I67.82 Cerebral ischemia; I42.9 Cardiomyopathy, unspecified; E87.1 Hypo-osmolality and hyponatremia; E83.42 Hypomagnesemia; M62.81 Muscle weakness (generalized); R20.2 Paresthesia of skin; R47.81 Slurred speech; I48.2 Chronic atrial fibrillation; H91.93 Unspecified hearing loss, bilateral; D53.9 Nutritional anemia, unspecified; Z86.73 Personal history of transient ischemic attack (TIA), and cerebral infarction without residual deficits; Z79.01 Long term (current) use of anticoagulants; Z68.22 Body mass index [BMI] 22.0-22.9, adult; Z91.14 Patient's other noncompliance with medication regimen
CPT/HCPCS: 83880; 84439; 97110-GP; 97116-GP; 97530-GP; J1644; J1956; J3475; J7030; Q0092